=== PATIENT | female | born 1985 | race Caucasian/White ===

== ENCOUNTER 2016-12-12 18:16 | Emergency (ER) | payer OTHER ==
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
== END 2016-12-12 19:17 | disposition home or self-care (01) ==
LOC: CFTX 18:16
DX: S13.9XXA Sprain of joints and ligaments of unspecified parts of neck, initial encounter (principal); S23.3XXA Sprain of ligaments of thoracic spine, initial encounter; V43.62XA Car passenger injured in collision with other type car in traffic accident, initial encounter
CPT/HCPCS: 71020; 72040; 72072; 99284